=== PATIENT | female | born 1955 | race Hispanic/Latino ===

== ENCOUNTER 2017-07-27 11:53 | Emergency (ER) | payer OTHER, SELFPAY ==
[~2017-07-27 11:53] MED LIST: ACET-2247 PO; ASPI-1005 PO; ATOR40TA69 PO; CLOP75TA14 PO; FAMO20TA8 PO; FE F1CAP9 PO; LISI1TAB9 PO; METO25 PO; METO50TA18 PO
[2017-07-27 12:32] LABS: APPEARANCE,URINE Clear (CLEAR); BILIRUBIN,URINE Negative (NEGATIVE); COLOR,URINE Yellow (YELLOW); GLUCOSE, URINE (UA) Negative (NEGATIVE); KETONES,URINE Negative (NEGATIVE); LEUKOCYTE ESTERASE ,URINE Small (NEGATIVE); NITRATE,URINE Negative (NEGATIVE); OCCULT BLOOD,URINE Negative (NEGATIVE); PH,URINE 6.5 (5.0-8.0); PROTEIN,URINE Negative (NEGATIVE); UROBILINOGEN,URINE 0.2 mg/dL (0.2-1.0)
[2017-07-27 12:35] LABS: BASOPHILS % (AUTO) 0.5 % (0.0-5.0); EOSINOPHILS % (AUTO) 1.9 % (0.0-8.0); HEMATOCRIT 31.9 % (36-48); MEAN CORPUSCULAR HGB CONC 32.6 g/dL (32.0-36.0); MEAN CORPUSCULAR VOLUME 76.7 fL (79-99); MONOCYTES % (AUTO) 5.1 % (3.0-13.0); NEUTROPHILS % (AUTO) 66.5 % (40.0-77.0); PLATELET COUNT (AUTO) 465 K/uL (130-400); RED BLOOD CELL COUNT(AUTO) 4.16 MIL/uL (4.00-5.50); RED CELL DISTRIBUTION WIDTH 16.4 % (11.0-15.5); WHITE BLOOD COUNT (AUTO) 9.9 K/uL (4.8-10.8)
[2017-07-27 12:44] LABS: POTASSIUM 3.4 mmol/L (3.5-5.1)
[2017-07-27 12:45] LABS: PARTIAL THROMBOPLASTIN TIME 29.6 SEC (26.3-35.5)
[2017-07-27] MEDS ORDERED: METOPROLOL TARTRATE 1 MG/ML 5ML VIAL IV ONE (12:54)
[2017-07-27 12:55] LABS: INR 0.99 (0.85-1.15); PROTHROMBIN TIME 10.4 SEC (9.6-11.6)
[2017-07-27 12:57] LABS: BILIRUBIN,TOTAL 0.3 mg/dL (0.2-1.0); CREATINE KINASE MB 1.2 ng/mL (0.5-3.6); TOTAL PROTEIN, SERUM 7.8 g/dL (6.0-8.3)
[2017-07-27 13:02] LABS: BACTERIA,URINE Rare /HPF (None Seen); RBC,URINE 0-1 /HPF (0-1); SQUAMOUS EPITHELIAL CELL,UR Rare /LPF (0-2)
== END 2017-07-27 16:18 | disposition home or self-care (01) ==
LOC: EDH 11:53
DX: J90 Pleural effusion, not elsewhere classified (principal); R06.00 Dyspnea, unspecified; I10 Essential (primary) hypertension; E78.5 Hyperlipidemia, unspecified; Z88.6 Allergy status to analgesic agent; Z88.8 Allergy status to other drugs, medicaments and biological substances
CPT/HCPCS: 32555; 36415; 71010 ×2; 80053; 81001; 82550; 82553; 84484; 85025; 85610; 85730; 93005; 96374; 99291; J3490

== ENCOUNTER → 2017-08-31 | Outpatient (CLI) | payer OTHER ==
[2017-08-31 14:24] LABS: INR 0.97 (0.85-1.15); PARTIAL THROMBOPLASTIN TIME 27.3 SEC (26.3-35.5); PROTHROMBIN TIME 10.2 SEC (9.6-11.6)
== END | disposition home or self-care (01) ==
LOC: RAH 12:31
PROVIDERS: ATTEND Internal Medicine Cardiovascular Disease
DX: J90 Pleural effusion, not elsewhere classified (principal); Z79.01 Long term (current) use of anticoagulants
CPT/HCPCS: 32555; 36415; 71045; 85610; 85730

== ENCOUNTER 2022-08-17 05:30 | Day surgery (SDC) | payer OTHER ==
[2022-08-15 09:07] LABS: BASOPHILS % (AUTO) 0.4 % (0.0-5.0); EOSINOPHILS % (AUTO) 2.2 % (0.0-8.0); HEMATOCRIT 38.7 % (36-48); LYMPHOCYTES % (AUTO) 29.1 % (21.0-51.0); MEAN CORPUSCULAR HEMOGLOBIN 26.2 pg (27.0-33.0); MEAN CORPUSCULAR HGB CONC 31.5 g/dL (32.0-36.0); MEAN CORPUSCULAR VOLUME 83.2 fL (79-99); MONOCYTES % (AUTO) 5.4 % (3.0-13.0); NEUTROPHILS % (AUTO) 62.6 % (40.0-77.0); PLATELET COUNT (AUTO) 251 K/uL (130-400); RED BLOOD CELL COUNT(AUTO) 4.65 MIL/uL (4.00-5.50); RED CELL DISTRIBUTION WIDTH 15.1 % (11.0-15.5); WHITE BLOOD COUNT (AUTO) 8.9 K/uL (4.8-10.8)
[2022-08-15 09:14] LABS: APPEARANCE,URINE CLEAR (CLEAR); BILIRUBIN,URINE NEGATIVE (NEGATIVE); COLOR,URINE COLORLESS (YELLOW); GLUCOSE, URINE (UA) NEGATIVE (NEGATIVE); KETONES,URINE NEGATIVE (NEGATIVE); LEUKOCYTE ESTERASE ,URINE 75 Leu/uL (NEGATIVE); NITRATE,URINE NEGATIVE (NEGATIVE); OCCULT BLOOD,URINE NEGATIVE (NEGATIVE); PROTEIN,URINE NEGATIVE (NEGATIVE); UROBILINOGEN,URINE 0.2 mg/dL (0.2-1.0)
[2022-08-15 09:16] LABS: CREATININE 1.2 mg/dL (0.5-1.5); POTASSIUM 4.2 mmol/L (3.5-5.1)
[2022-08-15 09:23] LABS: INR 0.96 (0.85-1.15); PROTHROMBIN TIME 10.5 SEC (9.6-11.6)
[2022-08-15 09:24] LABS: PARTIAL THROMBOPLASTIN TIME 28.8 SEC (26.3-35.5)
[2022-08-15 09:49] LABS: B-TYPE NATRIURETIC PEPTIDE 196 pg/mL (0-100)
[2022-08-15 09:54] LABS: BACTERIA,URINE RARE /HPF (None Seen); MUCUS,URINE RARE LPF (None Seen); SQUAMOUS EPITHELIAL CELL,UR RARE /HPF (0-2)
[2022-08-16 09:38] VITALS: BP 152/60
[2022-08-17] VITALS (10 sets, daily range): BP systolic 113–178; BP diastolic 47–80
[~2022-08-17] VITALS: Ht 149.9 cm; Wt 84.1 kg
[~2022-08-17 05:30] MED LIST changes: -ACET-2247 PO; +AEC81 PO; +AMLO-257 PO; -ASPI-1005 PO; -ATOR40TA69 PO; -CLOP75TA14 PO; +EZET10TA48 PO; -FAMO20TA8 PO; -FE F1CAP9 PO; -LISI1TAB9 PO; -METO25 PO; +NITR0.4T50 SL; +OLME40TA18 PO; +ROSU40TA21 PO
[2022-08-17] MEDS ORDERED: 0.9%NACL 1000ML 1,000 ML IV ONE (06:12)
[2022-08-17] MEDS ORDERED: FENTANYL CITRATE PF 50 MCG/1 ML 2ML VIAL ONE (07:24)
[2022-08-17] MEDS ORDERED: LIDOCAINE HCL 400MG/20ML VIAL ONE (07:24)
[2022-08-17] MEDS ORDERED: MIDAZOLAM HCL 1 MG/ML 2ML VIAL ONE (07:24)
[2022-08-17] MEDS ORDERED: NITROGLYCERIN 50MG VIAL ONE (07:24)
[2022-08-17] MEDS ORDERED: IOHEXOL 350 MG/ML 100ML INFUS..BTL IV ONE ×2 (07:24→08:29)
[2022-08-17] MEDS ORDERED: IOHEXOL-350 50ML VIAL IV ONE (07:24)
[2022-08-17] MEDS ORDERED: 0.9%NACL 1000ML 1,000 ML IV SCH (09:30)
[2022-08-17] MEDS ORDERED: ONDANSETRON 4MG INJ ONE (12:26)
[2022-08-17] MEDS ORDERED: ONDANSETRON 4MG INJ IVP SCH (13:00)
== END 2022-08-17 13:30 | disposition home or self-care (01) ==
LOC: DAH 05:30
PROVIDERS: ATTEND Internal Medicine Cardiovascular Disease
DX: I35.0 Nonrheumatic aortic (valve) stenosis (principal); I25.10 Atherosclerotic heart disease of native coronary artery without angina pectoris; I34.0 Nonrheumatic mitral (valve) insufficiency; I25.82 Chronic total occlusion of coronary artery; I25.810 Atherosclerosis of coronary artery bypass graft(s) without angina pectoris; I11.0 Hypertensive heart disease with heart failure; I50.32 Chronic diastolic (congestive) heart failure; E78.5 Hyperlipidemia, unspecified; I25.2 Old myocardial infarction; Z82.49 Family history of ischemic heart disease and other diseases of the circulatory system; Z83.3 Family history of diabetes mellitus; Z95.1 Presence of aortocoronary bypass graft; Z79.01 Long term (current) use of anticoagulants; Z79.899 Other long term (current) drug therapy; Z79.82 Long term (current) use of aspirin
CPT/HCPCS: 80048; 83880; 85025; 85610; 85730; 87088; 81001; 36415; 71045; 93005; 93461; C1769; C1894 ×3; C1760; C1893; J3010; J3490 ×2; J7030; J2405; J1644 ×2; Q9967 ×3; A4215; A4335; A4222; A4221; A4663; A4216; A4606; Q9965 ×2; A4223 ×3; A4554; 96360; 96361; 99156; 99157; J2250